=== PATIENT | female | born 1950 | race Caucasian/White ===

== ENCOUNTER → 2017-07-26 | Outpatient (CLI) | payer MEDICARE, OTHER ==
--- NOTE | 2017-07-26 12:43 | REPMRS ---
Patient History Patient is postmenopausal. Family history of breast cancer in sister at age 56, endometrial cancer in sister at age 74, ovarian cancer in sister at age 74, and breast cancer in mother at age 50 or over. Digital Woman Screen Mammo: July 26, 2017 - Exam #: [id number] Bilateral CC and MLO view(s) were taken. Technologist: Nidia Vergara Technologist Prior study comparison: July 14, 2016, digital woman screen mammo performed at [facility] to [facility]. July 13, 2015, digital woman screen mammo performed at [facility] to [facility]. FINDINGS: The breast tissue is extremely dense which could obscure a lesion on mammography. There is no evidence of cancer on this mammogram. No significant changes when compared with prior studies. ASSESSMENT: BI-RADS/ACR category 2 mammogram. Benign finding(s). Recommendation Routine screening mammogram of both breasts in 1 year (for women over age 40). This mammogram was interpreted with the aid of an FDA-approved computer-aided dectection system. Electronically Signed By: Ian Castillo MD 07/26/17 1641
== END ==
LOC: M WHC 11:32
PROVIDERS: ATTEND Family Medicine
DX: Z12.31 Encounter for screening mammogram for malignant neoplasm of breast (principal); Z78.0 Asymptomatic menopausal state; Z80.3 Family history of malignant neoplasm of breast; Z85.43 Personal history of malignant neoplasm of ovary

== ENCOUNTER 2017-10-02 11:00 | Day surgery (SDC) | payer OTHER | END 2017-10-02 13:05 | disposition home or self-care (01) | LOC: M OPP 11:00 | DX: Z12.11 Encounter for screening for malignant neoplasm of colon (principal); K64.0 First degree hemorrhoids; K57.30 Diverticulosis of large intestine without perforation or abscess without bleeding; I10 Essential (primary) hypertension; E78.00 Pure hypercholesterolemia, unspecified; Z79.82 Long term (current) use of aspirin; Z79.899 Other long term (current) drug therapy; Z78.0 Asymptomatic menopausal state; Z87.891 Personal history of nicotine dependence; Z80.3 Family history of malignant neoplasm of breast; Z80.49 Family history of malignant neoplasm of other genital organs | CPT/HCPCS: G0121 ==

== ENCOUNTER 2017-10-06 09:21 | Day surgery (SDC) | payer OTHER ==
[2017-10-06] MEDS ORDERED: fentaNYL 250 MCG/5 ML INJECTION (J3010) As Ordered (09:46)
[2017-10-06] MEDS ORDERED: MIDAZOLAM INJ 2 MG/2 ML VIAL (J2250) As Ordered (09:46)
[2017-10-06] MEDS ORDERED: LIDOCAINE 2% INJ 100 MG/5 ML SDV (FOR ANES.) As Ordered (09:46)
[2017-10-06] MEDS ORDERED: PROPOFOL 200 MG/20 ML VIAL As Ordered (09:46)
[2017-10-06] MEDS: CelecoXIB 400 MG CAP PO (09:49)
[2017-10-06] MEDS: PERCOCET 5MG/325MG TAB PO (09:49)
[2017-10-06 10:26] LABS: ANION GAP 6 MEQ/L (8-16); BLOOD UREA NITROGEN 17 MG/DL (7-18); CALCIUM LEVEL 8.7 MG/DL (8.8-10.2); CARBON DIOXIDE LEVEL 29 MEQ/L (21-32); CHLORIDE LEVEL 106 MEQ/L (98-107); GLOMERULAR FILTRATION RATE > 60.0 (>45); GLUCOSE, FASTING 98 MG/DL (70-100); POTASSIUM SERUM 3.2 MEQ/L (3.5-5.1); SODIUM LEVEL 141 MEQ/L (136-145)
[2017-10-06] MEDS: BUPIVACAINE/EPIN 0.5% 30 ML VIAL As Ordered (11:07)
[2017-10-06] MEDS ORDERED: dexameTHASONE 4 MG/ML 1ML VIAL (J1100) As Ordered (11:51)
[2017-10-06] MEDS ORDERED: ONDANSETRON 4MG/2ML VIAL (J2405) As Ordered (11:51)
[2017-10-06] MEDS ORDERED: KETOROLAC 60 MG/2 ML VIAL (J1885) As Ordered (11:51)
[2017-10-06] MEDS: ceFAZolin 1GM INJ (J0690 PER 500MG) As Ordered (12:00)
[2017-10-06] MEDS ORDERED: D5W/LR 1,000 ML IV (13:15)
[2017-10-06] MEDS ORDERED: MEPERIDINE INJ 25 MG/ML VIAL (J2175) IV (13:30)
[2017-10-06] MEDS ORDERED: PROMETHAZINE INJ 25 MG/ML VIAL (J2550) IV (13:30)
[2017-10-06] MEDS ORDERED: MORPHINE 2 MG/ML 1ML SYRINGE (J2270) IV (13:30)
[2017-10-06] MEDS ORDERED: fentaNYL 100 MCG/2 ML INJECTION (J3010) IV (13:30)
[2017-10-06] MEDS ORDERED: LR 1,000 ML IV (13:30)
[2017-10-06] MEDS ORDERED: KETOROLAC 30 MG/ML VIAL (J1885) IV (13:30)
[2017-10-06] MEDS ORDERED: ONDANSETRON 4MG/2ML VIAL (J2405) IV (13:30)
[2017-10-06] MEDS ORDERED: PERCOCET 5MG/325MG TAB PO ×3 (13:30)
== END 2017-10-06 14:40 | disposition home or self-care (01) ==
LOC: M SDC 09:21
DX: S52.532A Colles' fracture of left radius, initial encounter for closed fracture (principal); X58.XXXA Exposure to other specified factors, initial encounter; Y92.89 Other specified places as the place of occurrence of the external cause; I10 Essential (primary) hypertension; E78.5 Hyperlipidemia, unspecified; Z79.899 Other long term (current) drug therapy; Z79.82 Long term (current) use of aspirin
CPT/HCPCS: 25608

== ENCOUNTER → 2018-07-13 | Outpatient (CLI) | payer OTHER | LOC: M WHC 08:46 | DX: Z12.31 Encounter for screening mammogram for malignant neoplasm of breast (principal); I10 Essential (primary) hypertension; E78.49 Other hyperlipidemia; Z80.3 Family history of malignant neoplasm of breast | CPT/HCPCS: 77067 ==

== ENCOUNTER → 2020-09-02 | Outpatient (CLI) | payer MEDICARE ==
[~2020-09-02] MED LIST: AMLO1TAB25 PO; ASPI81TA26 PO; ATOR1TAB21 PO; GUMMCHW PO; HYDR25TAB PO; LISI-538 PO; POTA99TA PO
--- NOTE | 2020-09-02 13:57 | REPMRS ---
Patient History The patient states she has not had a clinical breast exam in over a year. Family history of breast cancer at age 50 or over in mother, breast cancer at age 56 in sister, endometrial cancer at age 74 and ovarian cancer at age 74 in sister, prostate cancer at age 50 in brother. No Hormone Replacement Therapy Digital Woman Screen Mammo: September 02, 2020 - Exam #: [id number] Bilateral CC and MLO view(s) were taken. Technologist: Christy Alegre, Technologist Prior study comparison: August 15, 2019, bilateral digital woman screen mammo performed at [facility]. July 13, 2018, bilateral digital woman screen mammo performed at [facility]. July 26, 2017, digital woman screen mammo performed at [facility]. FINDINGS: The breast tissue is heterogeneously dense. This may lower the sensitivity of mammography. The Volpara volumetric breast density category is: C. There is a moderate amount of heterogeneously dense fibroglandular tissue which is fairly symmetric. There is no interval development of dominant mass, architectural distortion, or grouped microcalcification typical of malignancy. There has been no change in the appearance of the mammogram from the prior studies. 3-D tomosynthesis shows no additional findings. Assessment: BI-RADS/ACR category 1 mammogram. Negative Mammogram. Recommendation Routine screening mammogram of both breasts in 1 year (for women over age 40). This patient's [facility] Lifetime Breast Cancer RIsk is estimated at 12.3 %. This mammogram was interpreted with the aid of an FDA-approved computer-aided dectection system. Electronically Signed By: Reginald Basilio MD 09/02/20 [id number]
== END ==
LOC: M WHC 13:18
PROVIDERS: ATTEND Family Medicine
DX: Z12.31 Encounter for screening mammogram for malignant neoplasm of breast (principal)